=== PATIENT | male | born 1945 | race Caucasian/White ===

== ENCOUNTER 2023-12-27 00:13 | Day surgery (SDC) | payer MEDICARE, SELFPAY ==
--- NOTE | 2023-12-20 12:43 | PC.NURSE ---
Report to the Outpatient Waiting Room, entrance under the green pavilion located off [facility], at time ___1400____ on date __12/27/23 . Planned Procedure Time: __1500 .? Time changes happen often and if your time is changed the preop area will call you the afternoon before. - You and your visitor will be asked to self-screen and do not enter if you have any COVID symptoms. Please call surgeon if you need to reschedule. - A mask is optional within the hospital at this time. LIGHT LUNCH Take only the following medications with a SIP of water on the morning of surgery: _ALL ROUTINE MEDICATIONS DO NOT STOP ANY OF YOUR OTHER PRESCRIPTION MEDICATIONS PRIOR TO SURGERY EXCEPT THE FOLLOWING Medications to discontinue per physician ___MAY CONTINUE ASPIRIN (HX CABG) PER DR FLANAGAN Please no make-up, nail malay, hairspray, perfume, deodorant, or body powder the day of surgery.? No jewelry (including any body piercings) or valuables the day of surgery, leave them at home.? Please take a shower or bath the night before, or the morning of, surgery with an antibacterial soap.? Wear comfortable, loose fitting clothing.? Children are encouraged to wear pajamas. - Jewelry must be removed prior to entering the operating room.? Rings and piercings that are not removed may be cut off. - The hospital will not accept responsibility for valuables.? - Please leave all valuables, including medications, at home the day of surgery. LOCAL ANESTHESIA -MAY DRIVE YOURSELF HOME For Pediatric surgeries, we recommend two adults accompany the child home. Follow any additional instructions given to you from your surgeon. Telephone instructions given to ____PT and asked if any additional questions and then verbalized understanding. Patient advised to call surgeon office or pre surgery nurse liaison [phone] if any additional questions.
[2023-12-20 12:49] VITALS: BMI 29.8
--- NOTE | 2023-12-27 14:52 | WPDHPUPDATE1 ---
History and Physical Update Update Date/Time: 12/27/23 14:52 History and Physical has been reviewed, including an updated exam of the patient. There are NO changes in the patient's condition. Risks, benefits, and alternatives have been discussed and questions answered. Patient agrees to proceed with procedure.
--- NOTE | 2023-12-27 14:53 | P.OP_ITS ---
Procedure Note - Detailed Date of Procedure 12/27/23 Pre-op Diagnosis Right Carpal Tunnel syndrome Post-op Diagnosis Same Procedure Performed Right Carpal tunnel release Surgeon Randall Hogan MD [employer] Parapro[employer] Alis Aggarwal PA-C Anesthesia Local (10 ML 0.5% Bupivicaine) Description of Procedure Preoperative nerve block with 10ML 1% Lidocaine with epinephrine was injected along the incision line and at the distal forearm in the holding area. The patient was brought to the operating room. The tourniquet was applied but not used. The hand was prepped and draped in the usual sterile fashion. The proposed incision was marked using typical anatomic landmarks. A longitudinal i ncision was taken sharply. Dissection was brought down to the transverse carpal ligament. Under direct vision the ligament was incised sharply. The proximal release was carried out with dissection scissors. The contents of the carpal canal were protected with a [place] elevator. The transverse carpal ligament was confirmed to be widely patent. The wound was closed with interrupted 3-0 Prolene suture. A sterile bulky dressing was placed. Patient was brought to the recovery room in stable condition. Estimated Blood Loss 1 Pathology None sent Complications No immediate complications Condition Stable Disposition Same day [facility] Billing Surgery - Charge Forward: Surgery Billing
[2023-12-27 15:01] VITALS: BP 113/58; PULSE 90; RESP 16; TEMP 36.7; O2SAT 100
[2023-12-27 15:20] VITALS: BP 158/85; PULSE 83; RESP 16; O2SAT 96
[2023-12-27 15:30] VITALS: BP 152/77; PULSE 80; RESP 16; O2SAT 98
[2023-12-27 15:40] VITALS: BP 152/82; PULSE 78; RESP 16; O2SAT 96
[2023-12-27 15:54] VITALS: BP 145/67; PULSE 69; O2SAT 97
== END 2023-12-27 16:10 | disposition home or self-care (01) ==
PROVIDERS: PCP Internal Medicine; Visit Provider Orthopaedic Surgery
PROC: (CPT 64721; principal; 2023-12-27 15:00)
DX: G56.01 Carpal tunnel syndrome, right upper limb (principal); M19.041 Primary osteoarthritis, right hand; I10 Essential (primary) hypertension; E78.5 Hyperlipidemia, unspecified; R73.9 Hyperglycemia, unspecified; I25.10 Atherosclerotic heart disease of native coronary artery without angina pectoris; K21.9 Gastro-esophageal reflux disease without esophagitis; R01.1 Cardiac murmur, unspecified; N40.0 Benign prostatic hyperplasia without lower urinary tract symptoms; I25.2 Old myocardial infarction; Z79.82 Long term (current) use of aspirin; Z98.890 Other specified postprocedural states; Z90.49 Acquired absence of other specified parts of digestive tract; Z96.652 Presence of left artificial knee joint; Z85.818 Personal history of malignant neoplasm of other sites of lip, oral cavity, and pharynx; Z87.891 Personal history of nicotine dependence; Z80.9 Family history of malignant neoplasm, unspecified; Z82.49 Family history of ischemic heart disease and other diseases of the circulatory system
CPT/HCPCS: 64721